=== PATIENT | male | born 1980 | race African-American/Black ===

== ENCOUNTER 2016-10-03 22:58 | Emergency (ER) | payer OTHER ==
[2016-10-03 23:07] VITALS: TEMP 98
--- NOTE | 2016-10-04 00:47 | XR ---
EXAMINATION TYPE: XR finger LT DATE OF EXAM: 10/04/2016 12:40 AM COMPARISON: NONE HISTORY: Patient has laceration to the left fourth digit from glass TECHNIQUE: 3 radiographs of left fourth digit were obtained. FINDINGS: No definite acute fracture or dislocation is noted in the visualized left fourth digit. No definite radiopaque foreign body is noted in the soft tissues of left fourth finger. IMPRESSION: No definite radiopaque foreign body is noted in the soft tissues of left fourth finger. No definite acute fracture or dislocation in the left fourth finger.
--- NOTE | 2016-10-04 00:57 | ED ---
Wound/Laceration HPI - General Chief Complaint: Wound/Laceration Stated Complaint: L Hand laceration Time Seen by Provider: 10/04/16 00:20 Source: patient, RN notes reviewed Mode of arrival: ambulatory Limitations: no limitations - History of Present Illness Initial Comments: Patient is a 36-year-old male presenting to the after cutting his left fourth finger on a glass while at dinner. Patient reports that he slipped possible glass within the cut. Patient denies any decreased range of motion of the finger. Patient reports tetanus vaccination is up-to-date. Patient states that he denies any peripheral paresthesias in the finger.Patient denies any recent fever, chills, shortness of breath, chest pain, back pain, abdominal pain , nausea vomiting, numbness or tingling, dysuria or hematuria, constipation or diarrhea, headaches or visual changes, or any other current symptoms - Related Data Home Medications Medication Instructions Recorded Confirmed No Known Home Medications [No 10/03/16 10/03/16 Known Home Medications] Allergies Allergy/AdvReac Type Severity Reaction Status Date / Time No Known Allergies Allergy Verified 10/03/16 23:07 Review of Systems ROS Statement: Those systems with pertinent positive or pertinent negative responses have been documented in the HPI. ROS Other: All systems not noted in ROS Statement are negative. Past Medical History Past Medical History: No Reported History History of Any Multi-Drug Resistant Organisms: None Reported Past Surgical History: No Surgical Hx Reported Past Psychological History: No Psychological Hx Reported Smoking Status: Current every day smoker Past Alcohol Use History: Occasional Past Drug Use History: None Reported General Exam - General Exam Comments Initial Comments: is a pleasant 36-year-old male. He has not been any acute distress. Limitations: no limitations General appearance: alert, in no apparent distress Head exam: Present: atraumatic, normocephalic, normal inspection Eye exam: Present: normal appearance, PERRL, EOMI. Absent: scleral icterus, conjunctival injection, periorbital swelling ENT exam: Present: normal exam, mucous membranes moist Neck exam: Present: normal inspection. Absent: tenderness, meningismus, lymphadenopathy Respiratory exam: Present: normal lung sounds bilaterally. Absent: respiratory distress, wheezes, rales, rhonchi, stridor Cardiovascular Exam: Present: regular rate, normal rhythm, normal heart sounds. Absent: systolic murmur, diastolic murmur, rubs, gallop, clicks Left Forearm Wrist exam: Present: normal inspection, full ROM Hand Wrist exam: Present: normal inspection, full ROM, laceration (Laceration over the anterior proximal fourth digit.) Hand L/R Front: 1 - laceration (2 cm) Back exam: Present: normal inspection Neurological exam: Present: alert, oriented X3, CN II-XII intact Psychiatric exam: Present: normal affect, normal mood Skin exam: Present: warm, dry, intact, normal color. Absent: rash Course Vital Signs 10/03/16 10/04/16 23:04 01:34 Temperature 98.0 F Pulse Rate 97 84 Respiratory 18 16 Rate Blood Pressure 153/100 142/75 O2 Sat by Pulse 96 98 Oximetry Procedures - Laceration Laceration #1 Indication: laceration Site: hand (Left fourth proximal finger.) Size (cm): 2 Description: linear Depth: simple, single layer Anesthetic Used: benzocaine 0.25% Anesthesia Technique: local infiltration Amount (mls): 4 Pre-repair: wound explored, irrigated extensively Type of Sutures: nylon Size of Sutures: 5-0 Number of Sutures: 4 Technique: simple, interrupted Patient Tolerated Procedure: well, no complications Medical Decision Making - Medical Decision Making Patient is a 36-year-old male with chief complaint of laceration over the left fourth finger after cutting it on glass while at dinner. X-rays obtained and no she no fracture of the finger. Patient does have full range of the finger and no evidence of tendon involvement. Patient was given 4 sutures. Patient was given a clean dressing with mupirocin ointment. Patient also was placed in a splint to prevent increased movement of the finger to allow healing. Patient will be given a referral for a hand surgeon if any consultations occur. I advised patient to monitor for any signs of infection including redness or drainage. Patient understands treatment plan will comply. Return parameters were discussed. - Radiology Data Radiology results: report reviewed Hand x-ray shows no evidence of any doctors or dislocations. No evidence of foreign body within the finger. Disposition Clinical Impression: Finger laceration Disposition: HOME SELF-CARE Condition: Good Instructions: Laceration (ED), Care For Your Stitches (ED) Additional Instructions: Please return to the emergency room in 8-10 days to have sutures removed. Please leave wound covered for the first 24-48 hours and then leave open to air after that time. Please use clean soap and water to clean the suture area to prevent scabbing over the top of your sutures. Please watch for any signs of infection which may include but not limited to increased pain, swelling, redness , fever or chills. Please return to the emergency room if any signs of infection do occur. Please return to the emergency room for any other concerns or complications. Referrals: Prashanth Estrada DO [Doctor of Osteopathic Medicine] - 1-2 days Time of Disposition: 01:24
[2016-10-04 01:36] VITALS: BP 142/75; PULSE 84; RESP 16
== END 2016-10-04 01:34 | disposition home or self-care (01) ==
LOC: EC 22:58
DX: S61.215A Laceration without foreign body of left ring finger without damage to nail, initial encounter (principal); W25.XXXA Contact with sharp glass, initial encounter; F17.200 Nicotine dependence, unspecified, uncomplicated
CPT/HCPCS: 12001; 99282

== ENCOUNTER → 2017-07-30 | Outpatient (CLI) | payer OTHER ==
--- NOTE | 2017-07-30 16:23 | MR ---
MR right ankle HISTORY: Right ankle pain Multiplanar multisequence imaging through the right ankle, no comparisons There is a valeriy tear involving the Achilles tendon. The tendon shows distraction, the proximal aspec t of the disrupted tendon is not seen with certainty. Abnormal thickening with abnormal signal is ass ociated. There is no sizable joint effusion. Some marrow edema suspected along the anterior aspect of the distal tibia extending towards the ankle joint. No evident osteochondral fracture. Plantar apone urosis is intact. Flexor and extensor tendons are intact. Subcutaneous edema is noted incidentally. P eroneal longus and brevis tendons are intact. IMPRESSION: Achilles tendon disruption.
== END | disposition home or self-care (01) ==
LOC: RADMRIMAIN 11:48
PROVIDERS: ATTEND Orthopaedic Surgery
DX: S86.001A Unspecified injury of right Achilles tendon, initial encounter (principal)

== ENCOUNTER 2017-08-03 12:30 | Day surgery (SDC) | payer OTHER ==
[2017-07-31 14:00] VITALS: BMI 29.4
[~2017-08-03 12:30] MED LIST: DEXAMETHASONE SOD PHOSPHATE 10 MG/ML 1 ML VIAL IV ONE; HYDROmorphone 0.5 MG/0.5 ML SYRINGE IVP PRN; LACTATED RINGERS 1,000 ML IV SCH; MIDAZOLAM 2 MG/2 ML VIAL IV PRN; ONDANSETRON 4 MG/2 ML VIAL IVP ONE; SCOPOLAMINE 1.5MG/72HR PATCH TRANSDERM ONE; ceFAZolin IN SWFI 2 GM/20 ML SYRINGE IVP ONE
[2017-08-03] MEDS ORDERED: LIDOCAINE 1% 20 ML VIAL (10MG/ML) FOR IV START INTRADERMA ONE (12:59)
[2017-08-03] MEDS ORDERED: HYDROmorphone (PF) 1 MG/ML ONE (17:33)
[2017-08-03] MEDS ORDERED: fentaNYL (PF) 50 MCG/ML 2 ML AMP ONE (17:33)
[2017-08-03] MEDS ORDERED: SUCCINYLCHOLINE CHLORIDE 100 MG/5 ML SYR IV ONE (17:33)
[2017-08-03] MEDS ORDERED: MIDAZOLAM 2 MG/2 ML VIAL ONE (17:33)
[2017-08-03] MEDS ORDERED: LIDOCAINE 1% INJ 10MG/ML (20 ML MDV) ONE (17:33)
[2017-08-03] MEDS ORDERED: PROPOFOL 10 MG/ML 20 ML VIAL IV ONE (17:33)
[2017-08-03] MEDS ORDERED: LACTATED RINGERS 1,000 ML IV ONE (18:21)
[2017-08-03 19:07] VITALS: TEMP 96.8
[2017-08-03] MEDS ORDERED: HYDROmorphone 2 MG/ML 1 ML SYRINGE IVP ONE ×3 (19:12→19:18)
--- NOTE | 2017-08-03 19:17 | P.OP ---
Date of Procedure: 08/03/17 Preoperative Diagnosis: 1. Right subacute mid substance Achilles tendon rupture 2. Current every day cigarette smoker Postoperative Diagnosis: Same Procedure(s) Performed: 1. Open repair right Achilles tendon rupture 2. Deep posterior compartment fasciotomy (a deep posterior compartment fasciotomy was performed to facilitate closure of the paratenon and evacuation of hematoma) 3. Occasional short leg splint Anesthesia: GETA Surgeon: Jarrett Last Estimated Blood Loss (ml): 5 IV fluids (ml): 700 Pathology: none sent Condition: stable Disposition: PACU Indications for Procedure: The patient is a very pleasant 36-year-old male with a medical history significant for smoking cigarettes. About 6 weeks ago he was playing basketball with his daughter when he acutely injured his ankle. He said it felt like some he stepped on the back of his heel. He did not seek medical attention for several weeks. He was then seen and transferred to our office. Clinically the patient had a mid substance Achilles tendon rupture with gapping but did not reapproximate with equinus. An MRI was obtained which showed a complete and retracted mid substance Achilles repair. Due to the patient presenting and a subacute manner and his On exam I recommended operative treatment. We discussed the potential risks and complications of surgery including but not limited to risk of anesthesia, risk of superficial infection, risk of deep infection, risk of delayed wound healing, risk of superficial wound necrosis, risk of deep wound necrosis, risk of rerupture, risk of decreased strength, risk of inability to regain preinjury level of function, risk of damage to local blood vessels or nerves, risk of chronic pain, risk of chronic swelling, risk of surgery not meeting preoperative expectations, risk of generalized to satisfaction with surgery, risk of DVT, risk of PE, and other less common complications including loss of life or leg. The patient understands that he is at a higher risk of having a complication particularly a wound healing issue or infection due to his history of smoking. He provided his verbal and written consent to go forward with surgery. Description of Procedure: Patient was identified in preoperative holding and the correct right leg was marked my initials. I reviewed the consent form with the patient and all of his questions were answered. The patient was then brought back to the operating room by anesthesia. A general anesthetic and preoperative antibiotics were administered well the patient was still on the gurney. A tourniquet was applied to the proximal right thigh. The patient was then flipped onto the prone position on the operating room table. All bony prominences were well-padded. The right leg was then prepped and draped in the standard sterile fashion. Prior to starting surgery timeout was performed identifying the correct patient, operative extremity, and procedure. The patient's leg was then elevated, exsanguinated with an Esmarch bandage, and the tourniquet was inflated to 250 mmHg. I began by marking out a longitudinal incision over the medial Achilles tendon centered over the gap in the tendon. Skin incision was made with a 15 blade scalpel and dissection was carried down crating full-thickness flaps down to the peritenon. The peritenon was opened longitudinally in line with the skin incision. I bluntly elevated the peritenon off of the Achilles tendon which had scarred down. Clinically there was a complete midsubstance rupture area and both the proximal and distal end were dissected free from the peritenon. A small amount of nonviable tissue from the ends of both the proximal and distal limb were sharply excised back to healthy appearing tendon. The deep posterior compartment fascia over the FHL muscle belly was then incised longitudinally in line with the surgical wound. Both the proximal and distal limb of the Achilles tendon were grasped using #2 Orthocord with a modified Krakw type stitch. Both limbs were tied nicely reapproximating the torn tendon ends. The rupture site was reinforced with a [id number] 0 Vicryl stitch. The peritenon was closed with a running 2-0 Vicryl stitch. The deep subcu was reapproximated using interrupted 3-0 Monocryl stitches. The skin was closed using a tension free technique utilizing 3-0 nylon Allgower modification of the Donati stitches. The tourniquet was let down. All instrument, sponge, and sharp counts were correct. Brown quarter inch stretchy Steri-Strips were placed between each stitch. A sterile dressing consisting of Betadine soaked Adaptic, 4 x 4, and web roll was applied. A well-padded bulky Serra splint in slight equinus was then placed. The patient was then awoken from his anesthetic , flipped onto the supine position on the rney, extubated, and brought to PACU having tolerated the procedure well.
[2017-08-03] MEDS ORDERED: MEPERIDINE 50 MG/ML SYRINGE IVP ONE ×2 (19:19→19:20)
[2017-08-03 19:43] VITALS: RESP 18
[2017-08-03] MEDS ORDERED: HYDROcodone/APAP 7.5-325MG 1 EACH TAB PO ONE ×2 (19:53→20:10)
[2017-08-03 21:40] VITALS: BP 154/88; PULSE 54
== END 2017-08-03 21:33 | disposition home or self-care (01) ==
LOC: OR 12:30
PROVIDERS: ATTEND Orthopaedic Surgery
DX: S86.011A Strain of right Achilles tendon, initial encounter (principal); X58.XXXA Exposure to other specified factors, initial encounter; Y93.67 Activity, basketball; K21.9 Gastro-esophageal reflux disease without esophagitis; F17.210 Nicotine dependence, cigarettes, uncomplicated; Z79.899 Other long term (current) drug therapy
CPT/HCPCS: 27650; J2250; J1170 ×3; J1100; J2175; J0690; J2405; J2001; J3010; J0330; J2704

== ENCOUNTER 2018-03-23 09:43 | Emergency (ER) | payer OTHER ==
[2018-03-23 09:48] VITALS: BP 121/69; PULSE 72; RESP 20; TEMP 98.2
--- NOTE | 2018-03-23 10:13 | ED ---
Skin/Abscess/FB HPI - General Chief complaint: Skin/Abscess/Foreign Body Stated complaint: Rash Time Seen by Provider: 03/23/18 09:49 Source: patient, RN notes reviewed Mode of arrival: ambulatory Limitations: no limitations - History of Present Illness Initial comments: This a 37-year-old male presents emergency department tingling of her rash. Patient states rash has been getting worse. 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 He has had a recent sunburn. He states it's fine papules that are itchy all over worse when he itches. Patient states he tried some apricot will maybe thought this caused it. Denies any new medications or any other soaps on detergents. Patient denies any difficulty breathing or difficulty swallowing. No recent sore throat. He has no contacts with some her symptoms. - Related Data Home Medications Medication Instructions Recorded Confirmed Omeprazole 20 mg PO DAILY PRN 07/17/17 03/23/18 Previous Rx's Medication Instructions Recorded diphenhydrAMINE [Benadryl] 50 mg PO QID PRN #20 capsule 03/23/18 Allergies Allergy/AdvReac Type Severity Reaction Status Date / Time No Known Allergies Allergy Verified 03/23/18 09:55 Review of Systems ROS Statement: Those systems with pertinent positive or pertinent negative responses have been documented in the HPI. ROS Other: All systems not noted in ROS Statement are negative. Past Medical History Past Medical History: GERD/Reflux History of Any Multi-Drug Resistant Organisms: None Reported Past Surgical History: No Surgical Hx Reported Additional Past Surgical History / Comment(s): achilles Additional Past Anesthesia/Blood Transfusion Reaction / Comment(s): NEVER HAD ANESTHESIA Past Psychological History: No Psychological Hx Reported Smoking Status: Former smoker Past Alcohol Use History: Occasional Past Drug Use History: None Reported - Past Family History Mother Family Medical History: Hypertension General Exam Limitations: no limitations General appearance: alert, in no apparent distress ENT exam: Present: normal exam, normal oropharynx, mucous membranes moist Neck exam: Present: normal inspection. Absent: tenderness, meningismus, lymphadenopathy Respiratory exam: Present: normal lung sounds bilaterally. Absent: respiratory distress, wheezes, rales, rhonchi, stridor Cardiovascular Exam: Present: regular rate, normal rhythm, normal heart sounds. Absent: systolic murmur, diastolic murmur, rubs, gallop, clicks Skin exam: Present: warm, dry, intact, normal color, rash (Very fine diffuse papular rash close together with no larger papules noted some excoriations no vesicles) Course Vital Signs 03/23/18 09:46 Temperature 98.2 F Pulse Rate 72 Respiratory 20 Rate Blood Pressure 121/69 O2 Sat by Pulse 99 Oximetry Medical Decision Making - Medical Decision Making 37-year-old male presents from for rash. This appears to be some sort of dermatitis or typically heat rash. Patient was evaluated by Dr. Rodriguez in addition believes this with the rashes. Patient is advised to avoid exposure to sun. He is to use antihistamines as directed and apply topical calamine motion. Disposition Clinical Impression: Dermatitis, Heat rash Disposition: HOME SELF-CARE Condition: Stable Instructions: Dermatitis (ED) Additional Instructions: Please return to the Emergency Department if symptoms worsen or any other concerns. Prescriptions: diphenhydrAMINE [Benadryl] 50 mg PO QID PRN #20 capsule PRN Reason: Itching Is patient prescribed a controlled substance at d/c from ED?: No Referrals: Sonya Messina MD [Primary Care Provider] - 1-2 days Time of Disposition: 10:12
== END 2018-03-23 10:23 | disposition home or self-care (01) ==
LOC: EC 09:43
DX: L30.9 Dermatitis, unspecified (principal); L74.0 Miliaria rubra; K21.9 Gastro-esophageal reflux disease without esophagitis; Z87.891 Personal history of nicotine dependence
CPT/HCPCS: 99282

== ENCOUNTER 2019-07-06 12:24 | Emergency (ER) | payer OTHER ==
[2019-07-06 13:00] VITALS: RESP 18
[2019-07-06] MEDS ORDERED: KETOROLAC 30 MG/ML 1 ML VIAL IVP STA (13:19)
[2019-07-06] MEDS ORDERED: SODIUM CHLORIDE 0.9% 1,000 ML IV STA ×2 (13:19)
[2019-07-06] MEDS ORDERED: ONDANSETRON 4 MG/2 ML VIAL IVP STA (13:19)
[2019-07-06] MEDS ORDERED: PANTOPRAZOLE 40 MG/10 ML VIAL IVP STA (13:19)
[2019-07-06 14:02] LABS: Albumin 4.9 g/dL (3.5-5.0); Calcium 9.6 mg/dL (8.4-10.2); Potassium 4.2 mmol/L (3.5-5.1); Total Bilirubin 1.1 mg/dL (0.2-1.3); Total Protein 8.6 g/dL (6.3-8.2)
[2019-07-06 14:09] LABS: Basophils % (A) 0 %; Eosinophils % (A) 0 %; HCT 48.6 % (39.0-53.0); HGB 16.3 gm/dL (13.0-17.5); Lymphocytes # (A) 0.2 k/uL (1.0-4.8); Lymphocytes % (A) 5 %; MCHC 33.5 g/dL (31.0-37.0); MCV 92.5 fL (80.0-100.0); Mean Platelet Volume 7.1; Monocytes # (A) 0.2 k/uL (0-1.0); Monocytes % (A) 5 %; Neutrophils # (A) 4.2 k/uL (1.3-7.7); Neutrophils % (A) 88 %; Platelet Count 142 k/uL (150-450); RBC 5.26 m/uL (4.30-5.90); RDW 13.2 % (11.5-15.5); WBC 4.7 k/uL (3.8-10.6)
[2019-07-06 14:15] LABS: Prothrombin Time 10.5 sec (9.0-12.0)
--- NOTE | 2019-07-06 14:17 | XR ---
EXAMINATION TYPE: XR KUB DATE OF EXAM: 07/06/2019 2:12 PM CLINICAL HISTORY: Right lower quadrant pain with nausea and vomiting TECHNIQUE: Two Upright KUB images of the abdomen are obtained. COMPARISON: None. FINDINGS: Surgical sutures epigastric region. Scattered gas in small and large bowel loops with scatt ered air-fluid levels. Few colonic loops in the midabdomen are slightly more prominent. No pneumoperi toneum or suspicious calcification. Lung bases are clear. Osseous structures are intact. IMPRESSION: Overall nonspecific but favor nonobstructive bowel gas pattern.
--- NOTE | 2019-07-06 15:04 | ED ---
Abdominal Pain HPI - General Chief Complaint: Abdominal Pain Stated Complaint: Vomiting Time Seen by Provider: 07/06/19 13:07 Source: patient, RN notes reviewed, old records reviewed Mode of arrival: ambulatory Limitations: no limitations - History of Present Illness Initial Comments: 38-year-old male presents returns today with nausea and vomiting, starting last night. Patient reports abdominal muscle pain from wretching. No history of sick contacts. Patient reports no specific fever or chills. Patient has no surgical history. Patient has no dysuria. Denies back pain. - Related Data Home Medications Medication Instructions Recorded Confirmed Omeprazole 20 mg PO DAILY PRN 07/17/17 07/06/19 Previous Rx's Medication Instructions Recorded Dicyclomine [Bentyl] 10 mg PO TID #15 capsule 07/06/19 Ondansetron Odt [Zofran Odt] 4 mg PO Q8HR PRN #12 tab 07/06/19 Allergies Allergy/AdvReac Type Severity Reaction Status Date / Time No Known Allergies Allergy Verified 07/06/19 14:05 Review of Systems ROS Statement: Those systems with pertinent positive or pertinent negative responses have been documented in the HPI. ROS Other: All systems not noted in ROS Statement are negative. Past Medical History Past Medical History: GERD/Reflux History of Any Multi-Drug Resistant Organisms: None Reported Past Surgical History: No Surgical Hx Reported Additional Past Surgical History / Comment(s): achilles Additional Past Anesthesia/Blood Transfusion Reaction / Comment(s): NEVER HAD ANESTHESIA Past Psychological History: No Psychological Hx Reported Smoking Status: Former smoker Past Alcohol Use History: Occasional Past Drug Use History: None Reported - Past Family History Mother Family Medical History: Hypertension General Exam - General Exam Comments Initial Comments: 38 year old male, no distress. Limitations: no limitations General appearance: alert, in no apparent distress Head exam: Present: atraumatic, normocephalic, normal inspection Eye exam: Present: normal appearance, PERRL, EOMI. Absent: scleral icterus, conjunctival injection, periorbital swelling ENT exam: Present: normal exam, mucous membranes moist Neck exam: Present: normal inspection Respiratory exam: Present: normal lung sounds bilaterally. Absent: respiratory distress, wheezes, rales, rhonchi, stridor Cardiovascular Exam: Present: regular rate, normal rhythm, normal heart sounds. Absent: systolic murmur, diastolic murmur, rubs, gallop, clicks GI/Abdominal exam: Present: soft, normal bowel sounds. Absent: distended, tenderness, guarding, rebound, rigid Extremities exam: Present: normal inspection, full ROM, normal capillary refill. Absent: tenderness, pedal edema, joint swelling, calf tenderness Back exam: Present: normal inspection Neurological exam: Present: alert, oriented X3, CN II-XII intact Psychiatric exam: Present: normal affect, normal mood Skin exam: Present: warm, dry, intact, normal color. Absent: rash Course Vital Signs 07/06/19 07/06/19 12:57 16:20 Temperature 99.1 F 97 F L Pulse Rate 86 84 Respiratory 18 18 Rate Blood Pressure 124/85 127/61 O2 Sat by Pulse 95 97 Oximetry Medical Decision Making - Medical Decision Making 38 yo male with nausea and vomitng for one day. Given IV fluids, nausea and pain medicine. Patient was reevaluated and is feeling better after fluids. Labs were reviewed and unremarkable. KUB is normal. Patient advised that likely viral gastroenteritis. Patient will be discharged with nausea medication and bentyl. Discussed PCP follow up with return parameters. - Lab Data Result diagrams: 07/06/19 13:33 07/06/19 13:33 Lab Results 07/06/19 07/06/19 07/06/19 Range/Units 13:33 13:33 13:33 WBC 4.7 (3.8-10.6) k/uL RBC 5.26 (4.30-5.90) m/uL Hgb 16.3 (13.0-17.5) gm/dL Hct 48.6 (39.0-53.0) % MCV 92.5 (80.0-100.0) fL MCH 31.0 (25.0-35.0) pg MCHC 33.5 (31.0-37.0) g/dL RDW 13.2 (11.5-15.5) % Plt Count 142 L (150-450) k/uL Neutrophils % 88 % Lymphocytes % 5 % Monocytes % 5 % Eosinophils % 0 % Basophils % 0 % Neutrophils # 4.2 (1.3-7.7) k/uL Lymphocytes # 0.2 L (1.0-4.8) k/uL Monocytes # 0.2 (0-1.0) k/uL Eosinophils # 0.0 (0-0.7) k/uL Basophils # 0.0 (0-0.2) k/uL PT 10.5 (9.0-12.0) sec INR 1.0 (<1.2) APTT 24.0 (22.0-30.0) sec Sodium 138 (137-145) mmol/L Potassium 4.2 (3.5-5.1) mmol/L Chloride 100 (98-107) mmol/L Carbon Dioxide 25 (22-30) mmol/L Anion Gap 13 mmol/L BUN 23 H (9-20) mg/dL Creatinine 1.29 H (0.66-1.25) mg/dL Est GFR (CKD-EPI)AfAm 81 (>60 ml/min/1.73 sqM) Est GFR (CKD-EPI)NonAf 70 (>60 ml/min/1.73 sqM) Glucose 112 H (74-99) mg/dL Calcium 9.6 (8.4-10.2) mg/dL Total Bilirubin 1.1 (0.2-1.3) mg/dL AST 38 (17-59) U/L ALT 35 (21-72) U/L Alkaline Phosphatase 65 (38-126) U/L Total Protein 8.6 H (6.3-8.2) g/dL Albumin 4.9 (3.5-5.0) g/dL Amylase 46 (30-110) U/L Lipase 91 (23-300) U/L Urine Color Urine Appearance (Clear) Urine pH (5.0-8.0) Ur Specific [place] (1.001-1.035) Urine Protein (Negative) Urine Glucose (UA) (Negative) Urine Ketones (Negative) Urine Blood (Negative) Urine Nitrite (Negative) Urine Bilirubin (Negative) Urine Urobilinogen (<2.0) mg/dL Ur Leukocyte Esterase (Negative) Urine RBC (0-5) /hpf Urine WBC (0-5) /hpf Urine Mucus (None) /hpf 07/06/19 Range/Units 15:31 WBC (3.8-10.6) k/uL RBC (4.30-5.90) m/uL Hgb (13.0-17.5) gm/dL Hct (39.0-53.0) % MCV (80.0-100.0) fL MCH (25.0-35.0) pg MCHC (31.0-37.0) g/dL RDW (11.5-15.5) % Plt Count (150-450) k/uL Neutrophils % % Lymphocytes % % Monocytes % % Eosinophils % % Basophils % % Neutrophils # (1.3-7.7) k/uL Lymphocytes # (1.0-4.8) k/uL Monocytes # (0-1.0) k/uL Eosinophils # (0-0.7) k/uL Basophils # (0-0.2) k/uL PT (9.0-12.0) sec INR (<1.2) APTT (22.0-30.0) sec Sodium (137-145) mmol/L Potassium (3.5-5.1) mmol/L Chloride (98-107) mmol/L Carbon Dioxide (22-30) mmol/L Anion Gap mmol/L BUN (9-20) mg/dL Creatinine (0.66-1.25) mg/dL Est GFR (CKD-EPI)AfAm (>60 ml/min/1.73 sqM) Est GFR (CKD-EPI)NonAf (>60 ml/min/1.73 sqM) Glucose (74-99) mg/dL Calcium (8.4-10.2) mg/dL Total Bilirubin (0.2-1.3) mg/dL AST (17-59) U/L ALT (21-72) U/L Alkaline Phosphatase (38-126) U/L Total Protein (6.3-8.2) g/dL Albumin (3.5-5.0) g/dL Amylase (30-110) U/L Lipase (23-300) U/L Urine Color Yellow Urine Appearance Clear (Clear) Urine pH 6.0 (5.0-8.0) Ur Specific [place] 1.032 (1.001-1.035) Urine Protein 1+ H (Negative) Urine Glucose (UA) Negative (Negative) Urine Ketones Negative (Negative) Urine Blood Negative (Negative) Urine Nitrite Negative (Negative) Urine Bilirubin Negative (Negative) Urine Urobilinogen 2.0 (<2.0) mg/dL Ur Leukocyte Esterase Negative (Negative) Urine RBC <1 (0-5) /hpf Urine WBC 1 (0-5) /hpf Urine Mucus Few H (None) /hpf Disposition Clinical Impression: Nausea & vomiting Disposition: HOME SELF-CARE Condition: Good Instructions (If sedation given, give patient instructions): Acute Nausea and Vomiting (ED) Additional Instructions: Please use medication as discussed. Please follow up with family doctor if symptoms have not improved over the next two days. Please return to the emergency room if your symptoms increase or worsen or for any other concerns. Prescriptions: Dicyclomine [Bentyl] 10 mg PO TID #15 capsule Ondansetron Odt [Zofran Odt] 4 mg PO Q8HR PRN #12 tab PRN Reason: Nausea Is patient prescribed a controlled substance at d/c from ED?: No Referrals: Sonya Messina MD [Primary Care Provider] - 1-2 days Time of Disposition: 16:06
[2019-07-06 15:50] LABS: Appearance,Urine Clear (Clear); Bilirubin,Urine Negative (Negative); Blood,Urine Negative (Negative); Color,Urine Yellow; Glucose,Urine (UA) Negative (Negative); Ketones,Urine Negative (Negative); Leukocyte Esterase,Urine Negative (Negative); Mucus,Urine Few /hpf; Nitrite,Urine Negative (Negative); Protein,Urine 1+ (Negative); RBC,Urine <1 /hpf (0-5); Specific Gravity,Urine 1.032 (1.001-1.035); WBC,Urine 1 /hpf (0-5)
[2019-07-06 16:22] VITALS: BP 127/61; PULSE 84; TEMP 97
== END 2019-07-06 16:20 | disposition home or self-care (01) ==
LOC: EC 12:24
DX: R11.2 Nausea with vomiting, unspecified (principal); M79.18 Myalgia, other site; K21.9 Gastro-esophageal reflux disease without esophagitis; Z87.891 Personal history of nicotine dependence; Z79.899 Other long term (current) drug therapy
CPT/HCPCS: 36415; 80053; 82150; 83690; 85025; 85610; 85730; 81001; 74018; 99284; 96374; 96375 ×2; 96361 ×3; J2405; J1885; C9113

== ENCOUNTER 2022-08-24 17:55 | Emergency (ER) | payer OTHER ==
[2022-08-24 18:05] VITALS: BP 124/83; PULSE 96; RESP 17; TEMP 98.1
[2022-08-24] MEDS ORDERED: ACETAMINOPHEN TAB 500 MG TAB PO STA (18:31)
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
== END 2022-08-24 20:00 | disposition home or self-care (01) ==
LOC: EC 17:55
DX: S63.601A Unspecified sprain of right thumb, initial encounter (principal); S46.912A Strain of unspecified muscle, fascia and tendon at shoulder and upper arm level, left arm, initial encounter; S20.20XA Contusion of thorax, unspecified, initial encounter; K21.9 Gastro-esophageal reflux disease without esophagitis; F17.200 Nicotine dependence, unspecified, uncomplicated; Z79.899 Other long term (current) drug therapy; Y04.0XXA Assault by unarmed brawl or fight, initial encounter
CPT/HCPCS: 71045; 72040; 99284